=== PATIENT | male | born 1995 | race American Indian/Alaskan Native ===

== ENCOUNTER 2021-08-24 13:08 | Emergency (ER) | payer SELFPAY ==
[2021-08-24 13:22] VITALS: BP 119/81
[2021-08-24] MEDS ORDERED: SODIUM CHLORIDE 0.9% 1000 ML 1,000 ML IV ONE (14:01)
[2021-08-24] MEDS ORDERED: KETOROLAC 30 MG/1 ML INJ IV ONE (14:02)
[2021-08-24] MEDS ORDERED: METOCLOPRAMIDE 10 MG/2 ML INJ IV ONE (14:02)
--- NOTE | 2021-08-24 16:11 | Emergency Department Report ---
ED Headache HPI - General Chief Complaint: Headache Stated Complaint: MIGRAINE Time Seen by Provider: 08/24/21 13:40 - History of Present Illness Initial Comments: 26-year-old -[place] male presents to the emergency room for 4-day history of headache. Patient states he has been nausea and vomiting and has not been able to hold any food or water down for the last 2 days. Patient does admit to slight photophobia. States that he ate some pork and not sure that it is irritated him. Patient denies any head injury. Allergies/Adverse Reactions: Allergies No Known Allergies Allergy (Unverified 08/24/21 13:19) ED Review of Systems ROS: Stated complaint: MIGRAINE Other details as noted in HPI Comment: All other systems reviewed and negative ED Physical Exam - General Limitations: No Limitations ED Course Vital Signs 08/24/21 08/24/21 13:21 14:18 Temperature 98.5 F Pulse Rate 75 Respiratory 16 16 Rate Blood Pressure 119/81 O2 Sat by Pulse 94 Oximetry Critical care attestation.: If time is entered above; I have spent that time in minutes in the direct care of this critically ill patient, excluding procedure time. ED Disposition Clinical Impression: Headache Qualifiers: Headache type: unspecified Headache chronicity pattern: acute headache Intractability: intractable Qualified Code(s): R51.9 - Headache, unspecified Disposition: 01 HOME / SELF CARE / HOMELESS Is pt being admited?: No Does the pt Need Aspirin: No Condition: Stable Instructions: General Headache Without Cause Additional Instructions: Please increase your fluid intake. You can try taking [id number] Excedrin Migraine. Follow-up with your primary care provider. Referrals: LENARD REYES MD [Staff Physician] - 3-5 Days Forms: Work/School Release Form(ED) Time of Disposition: 15:56
== END 2021-08-24 16:08 | disposition home or self-care (01) ==
LOC: ED 13:08
DX: R51.9 Headache, unspecified (principal); R11.2 Nausea with vomiting, unspecified
CPT/HCPCS: 96361; 96374; 96375; 99282; J1885; J2765; J7030; Q0162